=== PATIENT | female | born 1995 | race Caucasian/White ===

== ENCOUNTER 2016-08-24 08:29 | Emergency (ER) | payer OTHER ==
--- NOTE | 2016-08-24 08:37 | PDOC ---
*Physical Exam - Physical Exam Comments: 08/24/16 08:36 MIDLEVEL NOTE Pt seen by Midlevel Provider under my direct supervision. Pt interviewed and examined. Ancillary studies reviewed. I agree with plan as outlined by Midlevel Provider. 08/24/16 10:23 Foot and ankle series Faint linear lucencies over the base of second and third metatarsals--possible hairline fracture Patient is tender in this area to my exam Splint, crutches, or to follow-up, no weightbearing *DC/Admit/Observation/Transfer Diagnosis at time of Disposition: Fracture of metatarsal of left foot, closed Qualifiers: Encounter type: initial encounter Metatarsal bone: third Fracture alignment: nondisplaced Qualified Code(s): S92.335A - Nondisplaced fracture of third metatarsal bone, left foot, initial encounter for closed fracture - Discharge Dispostion Disposition: HOME Condition at time of disposition: Good - Referrals Referrals: Francois Mariscal MD [Staff Physician] - - Patient Instructions Printed Discharge Instructions: DI for Foot Fracture Additional Instructions: Please apply ice to the affected areas as much as you can tolerate for the next 3 days. Elevate when not ambulatory. Follow-up with referred orthopedist. Take Motrin 600 mg 3 times a day as needed for discomfort.
[2016-08-24 09:00] VITALS: TEMP 98.7; BMI 18.3
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
[2016-08-24 10:32] VITALS: BP 113/60; PULSE 100
== END 2016-08-24 10:54 | disposition home or self-care (01) ==
LOC: JER 08:29
PROC: 2W3LX1Z Immobilization of Right Lower Extremity using Splint (ICD-10-PCS; principal; 2016-08-24)
DX: S92.335A Nondisplaced fracture of third metatarsal bone, left foot, initial encounter for closed fracture (principal); S90.811A Abrasion, right foot, initial encounter; V03.10XA Pedestrian on foot injured in collision with car, pick-up truck or van in traffic accident, initial encounter; Y92.414 Local residential or business street as the place of occurrence of the external cause; Y93.89 Activity, other specified; Y99.8 Other external cause status
CPT/HCPCS: 73610-TC-LT; 73630-TC-LT; 99283-25

== ENCOUNTER 2018-09-30 09:06 | Emergency (ER) | payer OTHER ==
[2018-09-30 09:16] VITALS: BP 125/70; PULSE 100; TEMP 98.4; BMI 18.3
--- NOTE | 2018-09-30 10:11 | PDOC ---
History of Present Illness - General Chief Complaint: Cold Symptoms Stated Complaint: COUGH Time Seen by Provider: 09/30/18 10:00 Past History - Past Medical History Allergies/Adverse Reactions: Allergies Allergy/AdvReac Type Severity Reaction Status Date / Time No Known Allergies Allergy Verified 09/30/18 09:14 Home Medications: Ambulatory Orders Guaifenesin AC [Robitussin AC] 10 ml PO Q8H #150 ml MDD 3 09/30/18 COPD: No - Suicide/Smoking/Psychosocial Hx Smoking History: Never smoked Have you smoked in the past 12 months: No Information on smoking cessation initiated: No Hx Alcohol Use: No Drug/Substance Use Hx: No Substance Use Type: None Review of Systems - Review of Systems Constitutional: No: Chills, Fever, Weakness HEENTM: No: Ear Pain, Nose Pain, Nose Congestion, Throat Pain Respiratory: Yes: Cough. No: Shortness of Breath, Wheezing, Productive cough Cardiac (ROS): No: Chest Pain, Lightheadedness, Palpitations Neurological: No: Numbness, Paresthesia, Weakness All Other Systems: Reviewed and Negative *Physical Exam - Vital Signs Last Vital Signs Temp Pulse Resp BP Pulse Ox 98.4 F 100 H 20 125/70 100 09/30/18 09:15 09/30/18 09:15 09/30/18 09:15 09/30/18 09:15 09/30/18 09:15 - Physical Exam General Appearance: Yes: Nourished, Appropriately Dressed. No: Apparent Distress HEENT: positive: EOMI, ASHKAN, Normal ENT Inspection, Normal Voice, Symmetrical, TMs Normal, Pharynx Normal Neck: positive: Trachea midline, Supple. negative: Tender, Rigid Respiratory/Chest: positive: Lungs Clear, Normal Breath Sounds. negative: Chest Tender, Respiratory Distress, Accessory Muscle Use, Rhonchi, Stridor, Wheezing Cardiovascular: positive: Regular Rhythm, Regular Rate, S1, S2 (present). negative: Murmur Extremity: positive: Normal Capillary Refill, Normal Inspection, Normal Range of Motion Integumentary: positive: Normal Color, Dry, Warm Neurologic: positive: Fully Oriented, Alert, Normal Mood/Affect, Normal Response Moderate Sedation - Procedure Monitoring Vital Signs: Procedure Monitoring Vital Signs Temperature 98.4 F 09/30/18 09:15 Pulse Rate 100 H 09/30/18 09:15 Respiratory Rate 20 09/30/18 09:15 Blood Pressure 125/70 09/30/18 09:15 O2 Sat by Pulse Oximetry (%) 100 09/30/18 09:15 Medical Decision Making - Medical Decision Making 09/30/18 11:38 HPI: Pt is a 23 y/o F with no PMH who presents to the ED for a cough for 4 days. Pt was previously seen at a [facility] and diagnosed with a cough. She was given azithromycin, prednisone, and tesslon perles. She states she still has a dry cough despite the medication. Denies fevers, chills, ear ache, sore throat, chest pain, difficulty breathing. A/P CXR: negative for PNA Lungs CTA b/l Robitussin with codiene given with relief of symptoms Most likely a viral syndrom with cough Will send to pharmacy DC home I discussed the physical exam findings, ancillary test results and final diagnoses with the patient. I answered all of the patient's questions. The patient was satisfied with the care received and felt comfortable with the discharge plan and treatment plan. The Patient agrees to follow up with the primary care physician/specialist within 24-72 hours. Return precautions were given. *DC/Admit/Observation/Transfer Diagnosis at time of Disposition: Cough - Discharge Dispostion Disposition: HOME Condition at time of disposition: Stable Decision to Admit order: No - Prescriptions Prescriptions: Guaifenesin AC [Robitussin AC] 10 ml PO Q8H #150 ml MDD 3 - Referrals Referrals: Arthur Lomeli MD [Staff Physician] - - Patient Instructions Printed Discharge Instructions: DI for Cough -- Adult Additional Instructions: You were evaluated for your cough Your chest x-ray was normal Take the robitussin with codeine every 8 hours as needed for cough. Do not drink or drive after taking this medication as it may make you sleepy Continue the azithromycin and steroids as previously prescribed Stop the tesslon perles Drink plenty of fluids and use cough drops Follow with your primary care doctor Return to the ED for any new or worsening symptoms - Post Discharge Activity Forms/Work/School Notes: Back to School
[2018-09-30] MEDS ORDERED: guaiFENesin/CODEINE 10 ML UNIT-DOSE CUPS PO ONE (10:18)
[2018-09-30] MEDS ORDERED: guaiFENesin/CODEINE 5 ML UNIT-DOSE CUPS PO ONE (10:22)
== END 2018-09-30 11:47 | disposition home or self-care (01) ==
LOC: JERFT 09:06
DX: R05 Cough (principal)
CPT/HCPCS: 71046-TC-FY; 99281-25

== ENCOUNTER 2023-06-19 05:26 | Day surgery (SDC) | payer OTHER ==
[2023-06-19 08:46] VITALS: TEMP 97.7
[2023-06-19 09:17] VITALS: BP 101/61; PULSE 57; RESP 17
== END 2023-06-19 09:22 | disposition home or self-care (01) ==
LOC: JASU-ENDO 05:26
PROVIDERS: ATTEND Internal Medicine Gastroenterology
PROC: 0DBL8ZX Excision of Transverse Colon, Via Natural or Artificial Opening Endoscopic, Diagnostic (ICD-10-PCS; 2023-06-19)
PROC: 0DBN8ZX Excision of Sigmoid Colon, Via Natural or Artificial Opening Endoscopic, Diagnostic (ICD-10-PCS; 2023-06-19)
PROC: 0DBP8ZX Excision of Rectum, Via Natural or Artificial Opening Endoscopic, Diagnostic (ICD-10-PCS; 2023-06-19)
PROC: 0DBB8ZX Excision of Ileum, Via Natural or Artificial Opening Endoscopic, Diagnostic (ICD-10-PCS; 2023-06-19)
PROC: 0DB98ZX Excision of Duodenum, Via Natural or Artificial Opening Endoscopic, Diagnostic (ICD-10-PCS; 2023-06-19)
PROC: 0DB78ZX Excision of Stomach, Pylorus, Via Natural or Artificial Opening Endoscopic, Diagnostic (ICD-10-PCS; 2023-06-19)
PROC: 0DB68ZX Excision of Stomach, Via Natural or Artificial Opening Endoscopic, Diagnostic (ICD-10-PCS; 2023-06-19)
PROC: 0DB28ZX Excision of Middle Esophagus, Via Natural or Artificial Opening Endoscopic, Diagnostic (ICD-10-PCS; 2023-06-19)
PROC: 0DB38ZX Excision of Lower Esophagus, Via Natural or Artificial Opening Endoscopic, Diagnostic (ICD-10-PCS; 2023-06-19)
PROC: 0DB48ZX Excision of Esophagogastric Junction, Via Natural or Artificial Opening Endoscopic, Diagnostic (ICD-10-PCS; 2023-06-19)
PROC: 0DBH8ZX Excision of Cecum, Via Natural or Artificial Opening Endoscopic, Diagnostic (ICD-10-PCS; principal; 2023-06-19 08:00)
DX: Z12.11 Encounter for screening for malignant neoplasm of colon (principal); K62.89 Other specified diseases of anus and rectum; K21.00 Gastro-esophageal reflux disease with esophagitis, without bleeding; K29.50 Unspecified chronic gastritis without bleeding; B96.81 Helicobacter pylori [H. pylori] as the cause of diseases classified elsewhere; K92.1 Melena
CPT/HCPCS: 81025; 88305-TC; 88341-TC; 88342-TC